=== PATIENT | female | born 1980 | race Two or more races ===

== ENCOUNTER 2018-05-28 08:21 | Day surgery (SDC) | payer OTHER ==
[~2018-05-28 08:21] MED LIST: LOPID PO
== END 2018-05-28 11:05 | disposition home or self-care (01) ==
LOC: CIR.AMB 08:21
DX: D16.11 Benign neoplasm of short bones of right upper limb (principal)

== ENCOUNTER → 2019-01-28 | Day surgery (SDC) | payer OTHER ==
[~2019-01-28] MED LIST changes: +BRIMONIDINE; +TRAVATAN Z5 ML OP
== END | disposition home or self-care (01) ==
LOC: ADM 01-23 11:15 → CIR.AMB 06:27
DX: M19.031 Primary osteoarthritis, right wrist (principal); M24.831 Other specific joint derangements of right wrist, not elsewhere classified

== ENCOUNTER 2019-06-12 07:28 | Outpatient (CLI) | payer OTHER | END 2019-06-12 07:39 | disposition home or self-care (01) | LOC: NUCLEAR 07:28 | DX: M06.4 Inflammatory polyarthropathy (principal); M46.1 Sacroiliitis, not elsewhere classified | CPT/HCPCS: 78315; A9503 ==

== ENCOUNTER 2019-07-02 19:19 | Emergency (ER) | payer OTHER ==
[~2019-07-02] VITALS: Ht 160 cm; Wt 89.8 kg
== END 2019-07-03 01:05 | disposition home or self-care (01) ==
LOC: ER 19:19
DX: J06.9 Acute upper respiratory infection, unspecified (principal); J09.X2 Influenza due to identified novel influenza A virus with other respiratory manifestations

== ENCOUNTER 2025-03-10 06:00 | Day surgery (SDC) | payer OTHER ==
[2025-03-03 12:52] LABS: URINE APPEARANCE Cloudy; URINE BACTERIA 1423.2 uL (0.0-1933); URINE BILIRRUBIN Negative (NEGATIVE); URINE BLOOD Negative; URINE CAST 0.00 uL (0.0-1.40); URINE COLOR Yellow; URINE EPITHELIAL CELLS 26.6 uL (0.0-38.8); URINE GLUCOSE Negative (NEGATIVE); URINE KETONE Negative (NEGATIVE); URINE LEUKOCYTE Large; URINE NITRATE Negative; URINE PROTEIN Negative (NEGATIVE); URINE RBC 8.7 uL (0.0-20.8); URINE UROBILINOGEN 0.2 E.U./dl; URINE WBC 652.4 uL (0.0-23.2)
[2025-03-03 13:28] LABS: ALT/SGPT 37.0 U/L (12-78); AST/SGOT 15.0 U/L (15-37); BILIRUBIN TOTAL 0.37 mg/dL (0.3-1.2); BUN CREA RATIO 17.0 (7.0-25.0); CREATININE SERUM 0.77 mg/dL (0.55-1.02); GFR 80.7; GLOBULINA 3.8 G/DL (2.4-3.5); GLUCOSE FASTING 90.0 mg/dL (65-100); OSMOLALITY SERUM 281.0 MOSM/KG (275-295)
[2025-03-03 13:38] LABS: BASO % 0.6 % (0.1-1.2); EOS # 0.18 (0.04-0.54); EOS % 2.7 % (0.7-7.0); LYMPH # 1.50 (1.18-3.74); LYMPH % 22.8 % (19.3-53.1); MEAN PLATELET VOLUME 9.70 fl (9.4-12.4); MONO # 0.47 (0.24-0.82); MONO % 7.1 % (4.7-12.5); NEUT # 4.39 (1.56-6.13); NEUT % 66.6 % (34.0-71.1); RED CELL DISTRIBUTION WIDTH 12.1 % (11.6-14.4)
[2025-03-03 13:45] LABS: INR 1.0
[~2025-03-10 06:00] MED LIST changes: +ATACAND4 MG; +BRIMONIDINE TART5 ML; +CRESTOR 5MG; +METOPROLOL SUCC25 MG; +ONDANSETRON ODT8 MG PO; +PEPCID AC20 MG PO
[2025-03-10] MEDS ORDERED: CEFAZOLIN SODIUM 1,000 MG VIAL ONE (07:31)
[2025-03-10] MEDS ORDERED: BUPIVACAINE HCL/MPF 0.5% 30ML VIAL ONE (09:02)
== END 2025-03-10 13:50 | disposition home or self-care (01) ==
LOC: CIR.AMB 06:00
PROVIDERS: ATTEND Orthopaedic Surgery Hand Surgery
DX: M65.841 Other synovitis and tenosynovitis, right hand (principal)